=== PATIENT | male | born 1955 | race Caucasian/White ===

== ENCOUNTER → 2023-08-17 | Outpatient (REF) | payer MEDICARE, SELFPAY | LOC: DHSLP | PROVIDERS: ATTENDING PHYSICIAN Internal Medicine | DX: G47.33 Obstructive sleep apnea (adult) (pediatric) (principal) | CPT/HCPCS: 95800 ==

== ENCOUNTER 2024-03-28 21:57 | Inpatient (IN) | payer MEDICARE, SELFPAY ==
[2024-03-28 16:13] VITALS: BP 148/94
--- NOTE | 2024-03-28 19:48 | ED.GENMED ---
History of Present Illness
General
Chief Complaint: DVT/Possible Blood Clot
Source: patient
Exam Limitations: none
Time Seen by Provider: 03/28/24 18:37
History of Present Illness
History of Present Illness:
This is a 69 year old male that comes in with c/o bilateral leg DVT. States that he had DVT about 10-15 years ago and he was treated with Coumadin. States that he also had an IVC filter placed. States that he is no longer on any blood thinners.
States that his legs have been swollen since about Feb 23. State that he came in for ultrasound and was told that this was positive for DVT. States that he does get SOB going up the steps. Denies any fever, chills, chest pain, abd pain, nausea,
vomiting, diarrhea, headache, dizziness, urinary burning.
Past History
Past History
ED Past Medical History: HTN and Other (Kidney disease)
ED Past Surgical History: Other (Adrenal gland removed. IVC filter)
Social History
Tobacco: Non-smoker
Alcohol: Occasional
Personal:
Living: with family
Review of Systems
Review of Systems
All Other Systems: ROS reviewed and negative except as documented in HPI and ROS
Constitutional: Reports no symptoms; Denies fever or chills
EENT: Reports no symptoms
Respiratory: Reports trouble breathing; Denies cough
Cardiac: Reports no symptoms; Denies chest pain
ABD/GI: Reports no symptoms; Denies abdominal pain, nausea, vomiting or diarrhea
: Reports no symptoms; Denies dysuria, frequency or urgency
Musculoskeletal: Reports no symptoms
Skin: Reports other (Wound on the left lower leg)
Neurological: Reports no symptoms; Denies dizzy or headache
Psychiatric: Reports no symptoms
Phy Exam
General Physical Exam
General Presentation: no apparent distress
General age: appears stated age
General Skin: warm and dry
General Habitus: elderly and obese
General Mental: alert
General Hydration: appears well hydrated
ENT Exam
ENT Exam: TM's normal, pharynx normal and neck supple
Eye Exam
Eye Exam: EOMI
Cardiovascular Exam
Cardiovascular Exam: regular rate/rhythm and normal peripheral pulses
Pulmonary Exam
Pulmonary Exam: lungs clear, no respiratory distress, no rales, chest non tender, no crackles, no rhonchi, no wheezing and no cough
Gastrointestinal Exam
Gastrointestinal Exam: normal bowel sounds, non tender, soft, no organomegaly, no pulsatile mass, non distended and other (Obese)
Musculoskeletal Exam
Musculoskeletal Exam: full ROM and edema (Bilateral legs into the thighs. pitting edema +1 as skin is so tight. )
Skin Exam
Skin Exam: normal color, warm/dry, no petechia and redness (On the left lower leg with open wounds noted and draining. )
Psychiatric Exam
Psychiatric Exam: normal mood/affect
Course
Orders/Labs/Results
Orders:
Orders
03/28/24 19:56
Complete Blood Count/With Diff Urgent
Comprehensive Metabolic Panel Urgent
Lactic Acid Urgent
PTT Urgent
Prothrombin Time Urgent
03/28/24 19:58
Heparin 10,000 units IV NOW STA
Pharmacy Request to Place See Dose Instructions PO NOW STA
Discontinue all Active Warfarin orders?: Yes
Nursing to Place Non Medication Order As Directed
Physician Order: PTT 6 hours after initial start of Heparin infusion
03/28/24 19:59
Piperacillin/Tazo 3.375 Gram [Zosyn] 3.375 gram in 50 ml IV NOW
03/28/24 20:00
Heparin 83727 Units/250 ml 25,000 units in 250 ml IV PER PROTOCOL
Weight to be used for heparin protocol in kilograms (kg):: 133.81
Protocol:: DVT/PE
PTT Goal Range to be used:: PTT 73 to 111 seconds
Order type:: Initial
INITIAL Infusion Dose (UNITS/KG/hr) & then follow protocol:: 18 units/kg/hr
Infusion Dose in UNITS/hr & then follow protocol (UNITS/hr):: 2,000
INFUSION RATE in mL/hr & then follow protocol (mL/hr):: 20
For DVT/PE algorithm, re-bolus for low PTT?: Yes
PTT less than or equal to 64 seconds:: Re-bolus 80 units/kg (max 10,000units). Increase by 500 units/hr
(+ 5mL/hr)
PTT 64.1 to 72.9 seconds:: Re-bolus 40 units/kg (max 5,000 units). Increase by 300 units/hr
(+ 3mL/hr)
PTT 73 to 111 seconds:: Target Range. No change in rate.
PTT 111.1 to 130.9 seconds:: Decrease rate by 300 units/hr (- 3 mL/hr)
PTT 131 to 199.9 seconds:: HOLD for 1 hr. Then decrease by 400 units/hr (- 4mL/hr)
PTT greater than or equal to 200 seconds:: HOLD for 2 hrs & Notify Provider. Then decrease by 500 units/hr
(- 5mL/hr)
Lab follow-up:: Each change, PTT q6h until 2 consecutive are therapeutic. Then
PTT daily.
Pharmacy Request to Place See Dose Instructions IV DIRECTED
Abnormal Lab Results
03/28/24
19:56
RBC 4.52 L 10^6/uL
(4.70-6.10)
MCHC 32.4 L g/dL
(33.0-37.0)
RDW 16.1 H %
(11.5-14.5)
Abs Immat Gran (auto) 0.3 H 10^3/uL
(0-0.05)
Absolute Lymphs (auto) 0.9 L 10^3/uL
(1.2-3.4)
Immature Gran % 3.4 H %
(0-0.5)
Neutrophils % 76.5 H %
(42.2-75.2)
Lymphocytes % 12.1 L %
(20.5-51.1)
03/28/24 19:56
CBC normal. Dehydration. Chronic renal insufficiency, Hyperglycemia.
Vital Signs
Initial and Last Documented VS:
Initial Vital Signs
Temp Pulse Resp BP Pulse Ox
98.1 F 110 18 148/94 96
03/28/24 16:13 03/28/24 16:13 03/28/24 16:13 03/28/24 16:13 03/28/24 16:13
Last Documented Vital Signs
Temp Pulse Resp BP Pulse Ox
98.1 F 110 18 148/94 96
03/28/24 16:13 03/28/24 16:13 03/28/24 16:13 03/28/24 16:13 03/28/24 16:13
MDM/Problems Addressed
Differential Diagnosis Includes:
Extensive DVT bilateral legs
MDM/Problems Addressed:
This is a 69 year old male that comes in with c/o bilateral leg swelling and states that he has DVT in both legs. States that he has had leg swelling since Feb 23.
Will get labs, Explained to patient that his DVT are very extensive and it appears that he has some cellulitis on the left lower leg due to open wounds. Will admit patient and started on IV Heparin. Spoke with Dr. Rodríguez and he also agreed with
anticoagulation. Explained to patient that he will be admitted.
Chronic conditions affecting care: HTN and Cancer (Prostate)
Acute Exacerbation and/or Progression of Chronic Illness:
Prior history of DVT
*Radiology
Radiology exam reviewed: radiology read reviewed (US-Extensive bilateral occlusive and nonocclusive DVT. Right: The right common femoral, femoral and popliteal and posterior tibial veins show intraluminal echogenicity and noncompressibilty
consistent with thrombus formation. This occlusive in the mid and distal suprefical femoral vein and p), all reviewed NAD by ED Provider (US cont: and poplitteal vein. The peroneal vein is not visulized. Left: The left common femoral, femoral
popliteal and posterior tibial veins show intraluminal echogenicity and noncompressiblitly consistent with thrombus formation. This extends into the profundus vein as well. There is no flow in) and other (UC cont- The common femoral vein, posterior
tibial vein and profundus vein. The peroneal vein is not visualized. )
*Pulse Oximetry
Patient hypoxic: no
*EKG
Interpreted by ED Provider?: NA
Rate: EKG- N/A
*Gospel Worker Interpretation
Rate: Gospel Worker- N/A
*Critical Care Note
Total Time (30-74mins, 75-104mins- exclusive of procedures): Not Applicable
ED Attending Note
-
Portions of this chart may have been created with voice recognition software.� Occasional wrong word or��sound alike� substitutions may have occurred due to the inherent limitations of voice recognition software.
Discharge Plan
Departure
Patient Disposition: Admit
Date of Disposition: 03/28/24
Time of Disposition: 20:27
Presentation/result/management discussed w/ accepting MD/DO: Hospitalist
Patient with high blood pressure during this ER visit?: Yes
Condition: Good
Covid-19: Not Applicable
Discharge Problem:
Extensive DVT lower extremites, Cellulitis of left leg, Open wound of left lower extremity
Referrals:
UNKNOWN - PT DOES,NOT KNOW [Family Provider] -
Interventions
Interventions:
*General Assessment Last Done: 03/28/24 16:13
ED- Cardiac Assessment Last Done: 03/28/24 20:13
ED- Pulmonary Assessment Last Done: 03/28/24 20:13
ED-Skin Assessment Last Done: 03/28/24 20:12
Discharge Date and Time
Print Language: BULGARIAN
[2024-03-28 19:54] VITALS: BMI 43.6
[2024-03-28 20:17] LABS: % Basophils 0.5 % (0-2); % Eosinophils 0.9 % (0-6); % Immature Granulocytes 3.4 % (0-0.5); % Lymphocytes 12.1 % (20.5-51.1); % Monocytes 6.6 % (1.7-9.3); % Neutrophils 76.5 % (42.2-75.2); Absolute Eosinophils 0.1 10^3/uL (0-0.7); Absolute Immature Granulocytes 0.3 10^3/uL (0-0.05); Absolute Lymphocytes 0.9 10^3/uL (1.2-3.4); Absolute Monocytes 0.5 10^3/uL (0.1-0.6); Absolute Neutrophils 5.8 10^3/uL (1.4-6.5); Hematocrit 40.8 % (39.0-52.0); Hemoglobin 13.2 g/dL (13.0-18.0); Mean Corp Hgb Conc. 32.4 g/dL (33.0-37.0); Mean Corpuscular Hgb 29.2 pg (27.0-31.0); Mean Corpuscular Volume 90.3 fL (80.0-94.0); Nucleated Red Blood Cells % 0 % (-); Platelet Count 198 10^3/uL (130-400); Red Blood Cell Count 4.52 10^6/uL (4.70-6.10); Red Cell Dist. Width 16.1 % (11.5-14.5); White Blood Cell Count 7.6 10^3/uL (4.8-10.8)
[2024-03-28 20:26] LABS: Lactic Acid 1.4 mmol/L (0.7-2.0)
[2024-03-28 20:27] LABS: ALT (SGPT) 15 U/L (0-50); AST (SGOT) 20 U/L (17-59); Albumin 4.2 g/dl (3.5-5.0); Alkaline Phosphatase 86 U/L (38-126); Blood Urea Nitrogen 25 mg/dl (9-20); Calcium 9.3 mg/dl (8.4-10.2); Carbon Dioxide 23 mmol/L (22-30); Chloride 107 mmol/L (98-107); Estimated Creatinine Clearance 61 ml/min; Glucose 127 mg/dl (70-99); Potassium 4.2 mmol/L (3.5-5.1); Sodium 142 mmol/L (135-145); Total Bilirubin 0.7 mg/dl (0.2-1.3); eGFR 49.47
[2024-03-28 20:38] LABS: APTT 29.1 Sec (23.4-35.0)
[2024-03-28] MEDS: ZOSYN 50 IV (20:45)
[2024-03-28 21:02] LABS: INR 1.07; PT 14.2 Sec (11.4-14.6)
--- NOTE | 2024-03-28 21:06 | W.PN.UPDATE ---
Update Note
Progress Note Update
This note serves as an addendum to the H&P by dry color mixer BRANDEN Sanam ABRAHAM
HPI
69F HX HTN, remote HX HX DVT , IVC implant, HX adrenalactomy, CKD seen at ER;
- legs have been swollen since about Feb 23.
- POS OP Sono for extensive DVT
- DVT about 10-15 years ago treated with Coumadin and had an IVC filter placed
- no longer on any blood thinners.
ROS:
SOB going up the steps.
Denies any fever, chills, chest pain, abd pain, nausea, vomiting, diarrhea, headache, dizziness, urinary burning.
PHX; as above
Reviewed VS: afebrile , Tachycardia
PE
Gen: NAD, Morbidly obese
HEENT: anicteric
Neck: supple
Lungs: CTA
Cor: ST S1 S2 No murmur
Abdomen: obese
GLAZING DEPARTMENT SUPERVISOR: AAO3 , NFND
MS: Bilateral legs into the thighs: pitting edema +1 as skin is so tight.
Skin : LLEX; dusky red, warm and ruptured blisters oozing serosanguineous fluid
Psych: calm
Data
N WCC
Cr 1.5
eGFR 49
Wound Cx sent
B/L Radha US: Extensive bilateral occlusive and nonocclusive DVT as described above
- Rt Radha; occlusive in the mid and distal superficial femoral vein and popliteal vein.
- Lt Ex; common femoral, femoral, popliteal and posterior tibial vein with noncompressibility thrombus. No flow in the common femoral vein, posterior tibial vein and profundus vein
ASSESSMENT & PLAN
Recurrent extensive DVT in both Radha: Remote HX IVCF implant & DVT
Associated Lt Radha cellulins due to presumed infected venous stasis ruptured blister
Suspect Post DVT chronic venous insufficiency due to past IVCF and DVT
ST ? RV strain
- No prior Micro data in [facility]
- check MRSA screen
- empiric IV Cefazolin
- agree with Heparin gtt
- cannot have IV contrast CT due to CKD
- Hence ECHO to eval RH strain for now
- Pul consult for further eval for acute PE or what not !
HX FLORENTIN wear Noct CPAP
- to bring own CPAP
Suspect CKD3
- trend Cr
Obesity
- Affect all aspects of life
DVT Px ; on Heparin gtt
Full code
IP TLM
--- NOTE | 2024-03-28 21:12 | HPS.HSE ---
Family Physician
-
Family Physician: NOT KNOW UNKNOWN - PT DOES
Chief Complaint
-
Lower Extremity Edema with DVT
History of Present Illness
Patient is a 69 y/o male past medical history of HTN, Hyperlipidemia, CKD and prior DVT who presents with increased lower extremity edema. Patient reports increasing lower extremity edema of the past month. He notes the edema has worsened to the
point he developed some open weeping areas on his legs, particularly the left leg. He saw his PCP earlier today who sent him for a lower extremity ultrasound which revealed extensive bilateral DVTs. Patient has a prior history of DVT over 10 years
ago related to a prolonged hospitalization for which he was treated with Coumadin for 6 months and had an IVC filer placed. Patient has been working from home the past month, and noted increased sedentary lifestyle. Patient admits to increased
dyspnea on exertion over the past month as well. He also notes the increasing redness of the left lower extremity. He denies fevers, sweats or chills.
Medical History
Past Medical History
Past Medical History: Reports Other
Additional Past Medical History:
Essential Hypertension
Hyperlipidemia
CKD Stage IIIA
Generalized Anxiety Disorder
Prostate Cancer
Gout
Obstructive Sleep Apnea
Class III Obesity
Past Surgical History: Reports Other
Additional Past Surgical History:
Right Ankle ORIF
Left Adrenalectomy
Social History
Tobacco: Non-smoker
Alcohol: Other (Very rare alcohol use)
Family History
Family History: Not pertinent
Allergies / Home Medications
Allergies reflects when Allergies were last updated in [employer].
Home Medications with original date entered in [employer]
Allergy/Medication List:
Allergies
Allergy/AdvReac Type Severity Reaction Status Date / Time
No Known Allergies Allergy Unverified 03/28/24 16:13
Home Medications
amiloride 5 mg tablet 5 mg PO HS 03/28/24
amiloride 5 mg tablet 10 mg PO DAILY 03/28/24
citalopram 40 mg tablet 20 mg PO DAILY 03/28/24
febuxostat 40 mg tablet 40 mg PO DAILY 03/28/24
olmesartan 40 mg-amlodipine 10 mg-hydrochlorothiazide 25 mg tablet 1 tab PO HS 03/28/24
omega 1-cwv-fjw-fish oil 1,000 mg (120 mg-180 mg) capsule (Fish Oil) 1 cap PO BID 03/28/24
rosuvastatin 10 mg tablet 10 mg PO DAILY 03/28/24
Review of Systems
-
A 12 point ROS was completed and negative except as noted: Yes
Constitutional: Denies Fever or Chills
Respiratory: Reports Trouble Breathing; Denies Cough
Cardiac: Denies Chest Pain or Palpitations
Physical Exam
Vital Signs
Vital Signs
Temp Pulse Resp BP Pulse Ox
98.1 F 110 18 148/94 96
03/28/24 16:13 03/28/24 16:13 03/28/24 16:13 03/28/24 16:13 03/28/24 16:13
Physical Exam
General: Comfortable and Conversant
HEENT: Anicteric and Moist mucous membranes
Respiratory: Clear and Non Labored Respirations
Cardiac: S1/S2, Regular Rhythm and Tachycardia (Slightly)
GI: Soft and Non Tender
Rectal: Deferred by Provider
Musculoskeletal: No Clubbing, No Cyanosis and Other (+4 edema bilateral lower extremities)
Skin: Warm, Dry and Other (Moderate erythema left lower extremity from foot to just below knee with increased warmth to touch)
Neuro: Awake, Alert, Oriented and Nonfocal/grossly intact
Psych: Calm
Laboratory Results
-
03/28/24 19:56
03/28/24 19:56
Laboratory Results
PT 14.2 Sec (11.4-14.6) 03/28/24 19:56
INR 1.07 03/28/24 19:56
APTT 29.1 Sec (23.4-35.0) 03/28/24 19:56
Lactic Acid 1.4 mmol/L (0.7-2.0) 03/28/24 19:56
Total Bilirubin 0.7 mg/dl (0.2-1.3) 03/28/24 19:56
AST 20 U/L (17-59) 03/28/24 19:56
ALT 15 U/L (0-50) 03/28/24 19:56
Alkaline Phosphatase 86 U/L (38-126) 03/28/24 19:56
Data Reviewed
-
Lab Data: Labs Reviewed by me
Old Records: Reviewed
Impression/Plan
-
Bilateral Lower Extremity DVTs
-Continue heparin drip
-Concern raised from possible PE given tachycardia and reports dyspnea on exertion
-Consider VQ scan due to CKD
-Consult Pulmonary
Left Lower Extremity Cellulitis
-Continue Ancef
Essential Hypertension
-Continue amiloride, olmesartan, amlodipine and HCTZ
Hyperlipidemia
-Continue Crestor
CKD Stage IIIA
-Creatinine at baseline
Generalized Anxiety Disorder
-Continue citalopram
Obstructive Sleep Apnea
-Continue CPAP - Patient will bring from home
Class III Obesity due Excess Calories
-Affects all aspects of care
Code Status: Full Code
[2024-03-28] MEDS: HEPARIN 10000 UNITS IV (21:33)
[2024-03-28] MEDS: HEPARIN 25000 UNITS/250 ML IV (21:44)
[2024-03-28] MEDS: MIDAMOR PO (23:01)
[2024-03-28] MEDS: BENICAR PO (23:03)
[2024-03-28] MEDS: ORETIC PO (23:03)
[2024-03-28] MEDS: NORVASC PO (23:03)
[2024-03-28 23:08] VITALS: BP 154/81; BMI 43.3
[2024-03-28] MEDS: ANCEF 10 IV (23:37)
[2024-03-29 03:24] VITALS: BP 131/80
[2024-03-29 04:34] LABS: APTT 85.2 Sec (23.4-35.0)
[2024-03-29 06:00] VITALS: BMI 43.3
--- NOTE | 2024-03-29 07:17 | W.PN.HOSP.TC ---
Today's Communication/Plan
-
Echo
Compression, Elevation
Continue Heparin Drip
Await pulm eval
Assessment / Plan
Assessment / Plan
Physical Exam
General: Comfortable and Conversant
HEENT: Anicteric and Moist mucous membranes
Respiratory: Clear and Non Labored Respirations
Cardiac: S1/S2, Regular Rhythm and Regular Rate
GI: Soft and Non Tender. Positive bowel sounds.
Musculoskeletal: No Cyanosis and Other (+4 edema bilateral lower extremities)
Skin: Warm, Dry and Other (Moderate erythema left lower extremity from foot to just below knee with increased warmth to touch with wounds with a little serous drainage)
Neuro: Awake, Alert, Oriented and Nonfocal/grossly intact
Psych: Calm
Assessment/Plan
Bilateral Lower Extremity DVTs with wounds
Recurrent lower extremity dvt
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
Bilateral Lower Extremity Edema
-Continue heparin drip
-Concern raised from possible PE given tachycardia and reports dyspnea on exertion
-Consider VQ scan due to CKD
-Pulmonary was consulted at the time of admission, appreciate their evaluation and recommendations
-Vascular also consulted at the time of admission --> they mentioned that it is unclear there is benefit to lytic treatment and intervention
-Compression: wrap bilateral legs with phong wraps starting at toes and wrap to high thigh
-Elevation of lower extremities as much as possible
-Will need outpatient hematology follow-up
-Follow-up on echo
Left Lower Extremity Cellulitis
-Continue Ancef
Essential Hypertension
-Continue amiloride, olmesartan, amlodipine and HCTZ
Hyperlipidemia
-Continue Crestor
CKD Stage IIIA
-Creatinine at baseline
Generalized Anxiety Disorder
-Continue citalopram
Obstructive Sleep Apnea
-Continue CPAP - Patient will bring from home
History of Adrenalectomy?
Class III Obesity due Excess Calories
-Affects all aspects of care
DVT Prophylaxis: Heparin Drip
Code Status: Full Code
Anticipated Discharge: > 48 hours
Subjective/Interval History
-
Date of Service: March 29, 2024
Patient was seen and examined. He denied any pain in his legs, chest pain or shortness of breath.
Objective Data
-
Labs:
Laboratory Results
03/28/24 03/29/24 03/29/24
19:56 04:01 06:00
WBC 7.6 Pending
Hgb 13.2 Pending
Hct 40.8 Pending
Plt Count 198 Pending
PT 14.2
INR 1.07
APTT 29.1 85.2 H
Sodium 142 Pending
Potassium 4.2 Pending
Chloride 107 Pending
Carbon Dioxide 23 Pending
BUN 25 H Pending
Creatinine 1.5 H Pending
Glucose 127 H Pending
Calcium 9.3 Pending
Total Bilirubin 0.7
AST 20
ALT 15
Alkaline Phosphatase 86
03/29/24
10:40
WBC
Hgb
Hct
Plt Count
PT
INR
APTT Pending
Sodium
Potassium
Chloride
Carbon Dioxide
BUN
Creatinine
Glucose
Calcium
Total Bilirubin
AST
ALT
Alkaline Phosphatase
Vital Signs:
Vital Signs
Temp Pulse Resp BP Pulse Ox
98.1 F 71 19 131/80 96
03/29/24 03:24 03/29/24 03:24 03/29/24 03:24 03/29/24 03:24 03/29/24 03:24
I&O
03/28/24 03/29/24 03/30/24
06:59 06:59 06:59
Output Total 325 / 325
Balance -325 / -325
[2024-03-29 07:30] VITALS: BP 145/85
[2024-03-29] MEDS: MIDAMOR 10 MG PO (08:46)
[2024-03-29] MEDS: CELEXA 20 MG PO (08:46)
[2024-03-29] MEDS: CRESTOR 10 MG PO (08:46)
[2024-03-29] MEDS: ANCEF 10 IV ×2 (08:46→17:46)
[2024-03-29] MEDS: ULORIC 40 MG PO (08:48)
--- NOTE | 2024-03-29 09:41 | W.PN.VS ---
Today's Communication / Plan
-
- recurrent lower extremity dvt
- symptoms been present for a month
- given time fram, recurrence and bilateral nature, unlcear there is benefit to lytic treatment and intervention. Discussed with patient
- best option is compression and anticoagulation
- hep gtt - heme to manage anticoagulation fci (likely need lifelong anticoagulation)
- wrap bilateral legs with phong wraps starting at toes and wrap to high thigh
- elevate legs as much as possible to help with edema
- discussed with patient manager long term care and chronic nature of issuue
Assessment/Plan
-
bilateral lower extremity dvt with wounds
- recurrent lower extremity dvt
- symptoms been present for a month
- given time fram, recurrence and bilateral nature, unlcear there is benefit to lytic treatment and intervention. Discussed with patient
- best option is compression and anticoagulation
- hep gtt - heme to manage anticoagulation fci (likely need lifelong anticoagulation)
- wrap bilateral legs with phong wraps starting at toes and wrap to high thigh
- elevate legs as much as possible to help with edema
- discussed with patient fci and chronic nature of issuue
Subjective Data
-
Date of Service: March 29, 2024
patient presents with bilateral dvt
history of DVT and ivc filter 10 years ago
not on anticoagulation
progressive swelling of lower extremities over the last month
pain and blisters have been present for weeks
Objective Data
-
Vital Signs
Temp Pulse Resp BP Pulse Ox
98.6 F 73 18 145/85 95
03/29/24 07:30 03/29/24 08:46 03/29/24 07:30 03/29/24 08:46 03/29/24 07:30
Intake and Output
03/28/24 03/29/24 03/30/24
06:59 06:59 06:59
Intake Total 180 / 180
Output Total 325 / 325
Balance -325 / -325 180 / 180
Intake:
Oral fluids 180 / 180
Output:
Urine, Voided 325 / 325
Calcium 9.3 mg/dl (8.4-10.2) 03/28/24 19:56
Total Bilirubin 0.7 mg/dl (0.2-1.3) 03/28/24 19:56
AST 20 U/L (17-59) 03/28/24 19:56
ALT 15 U/L (0-50) 03/28/24 19:56
Alkaline Phosphatase 86 U/L (38-126) 03/28/24 19:56
Total Protein 7.0 g/dl (6.3-8.2) 03/28/24 19:56
Albumin 4.2 g/dl (3.5-5.0) 03/28/24 19:56
Physical Exam
-
rrr
ctab
nt,nd,soft
3-4+ edema bilat
blisters on leg left worse than right
no signs of ischemia
[2024-03-29 11:27] LABS: Hematocrit 37.5 % (39.0-52.0); Hemoglobin 12.2 g/dL (13.0-18.0); Mean Corp Hgb Conc. 32.5 g/dL (33.0-37.0); Mean Corpuscular Hgb 29.2 pg (27.0-31.0); Mean Corpuscular Volume 89.7 fL (80.0-94.0); Mean Platelet Volume 9.1 fL (7.4-10.4); Platelet Count 186 10^3/uL (130-400); Red Blood Cell Count 4.18 10^6/uL (4.70-6.10); Red Cell Dist. Width 16.1 % (11.5-14.5); White Blood Cell Count 7.1 10^3/uL (4.8-10.8)
[2024-03-29 11:42] LABS: Blood Urea Nitrogen 27 mg/dl (9-20); Calcium 9.2 mg/dl (8.4-10.2); Carbon Dioxide 25 mmol/L (22-30); Chloride 106 mmol/L (98-107); Estimated Creatinine Clearance 65 ml/min; Glucose 115 mg/dl (70-99); Sodium 139 mmol/L (135-145); eGFR 53.74
[2024-03-29 11:55] VITALS: BP 150/82
[2024-03-29] MEDS: HEPARIN 25000 UNITS/250 ML IV (12:04)
[2024-03-29 12:14] LABS: Glycohemoglobin (HgbA1c) 5.5 % (4.0-5.6)
[2024-03-29 15:29] VITALS: BP 144/80
--- NOTE | 2024-03-29 17:44 | CON.PUL ---
Consultation
Consultation Request
Date/Time Consultation Requested: 03/29/2024
Date/Time Consultation Performed: 03/29/2024
Requesting Provider: Dr. Gonzalez
Performing Provider: Dr. Meliton Brown
Reason for Consultation: Recurrent DVT
Medical History
-
History of Present Illness:
69-year-old man with past medical history significant for hypertension, hyperlipidemia, chronic kidney disease, prior DVT who presents with increased lower extremity edema. Patient reports increasing lower extremity edema for the past month. Lower
extremity edema significant enough that now he has weeping ulcers. Primary doctor sent him for ultrasound of the legs which revealed extensive bilateral DVT.
Patient has history of DVT 10 years ago related to prolonged hospitalization. Treated 6 months with Coumadin IVC filter was placed.
Reports increased sedentary lifestyle working from home the last several months.
Reports some increased exertional dyspnea for the last month as well.
Past Medical History
Past Medical History: Other (See assessment and plan)
Social History
Tobacco: Non-smoker
Alcohol: Other (Rare)
Drug: None
Family History
Family History: Reviewed & Not Pertinent
Allergies / Home Medications
Allergies
Allergy/AdvReac Type Severity Reaction Status Date / Time
No Known Allergies Allergy Unverified 03/28/24 16:13
Home Medications
�Medication �Instructions �Recorded �Confirmed �Last Taken �Type
amiloride 5 mg tablet 5 mg PO HS Blood Pressure 03/28/24 03/28/24 Unknown History
amiloride 5 mg tablet 10 mg PO DAILY Blood Pressure 03/28/24 03/28/24 Unknown History
citalopram 40 mg tablet 20 mg PO DAILY Mental 03/28/24 03/28/24 Unknown History
Health/Anxiety
febuxostat 40 mg tablet 40 mg PO DAILY High Cholesterol 03/28/24 03/28/24 Unknown History
olmesartan 40 mg-amlodipine 10 1 tab PO HS Blood Pressure 03/28/24 03/28/24 Unknown History
mg-hydrochlorothiazide 25 mg tablet
omega 2-mjs-kek-fish oil 1,000 mg 1 cap PO BID Supplement 03/28/24 03/28/24 Unknown History
(120 mg-180 mg) capsule (Fish Oil)
rosuvastatin 10 mg tablet 10 mg PO DAILY High Cholesterol 03/28/24 03/28/24 Unknown History
Review of Systems
Vitals / Labs / Diagnostic Testing
Vital Signs
Temp Pulse Resp BP Pulse Ox
98.7 F 72 18 144/80 98
03/29/24 15:29 03/29/24 15:29 03/29/24 15:29 03/29/24 15:29 03/29/24 15:29
Lab Data
03/29/24 11:17
03/29/24 11:17
Laboratory Results
03/28/24 03/29/24 03/29/24
19:56 04:01 11:17
PT 14.2
INR 1.07
APTT 29.1 85.2 H 74.0 H
Microbiology
03/28/24 20:41 Leg - Left Gram Stain - Preliminary
03/28/24 20:41 Heel - Right Gram Stain - Preliminary
Diagnostic Testing:
Physical Exam
-
HEENT: Normocephalic
Cardiovascular: S1/S2
Respiratory: Non-Labored Respirations
GI: Soft
Neurology: Awake
Skin: Other (Significant lower extremity edema with venous stasis.)
General: Comfortable
Assessment
-
69-year-old man who came with progressive lower extremity swelling for about a month. Found to have extensive bilateral DVT. Has history of DVT in the setting of hospitalization 10 years ago completed 6 months of anticoagulation, IVC filter was
placed at that time. We were consulted for evaluation
Bilateral lower extremity DVT
Lower extremity Dopplers 03/28/2024: Extensive bilateral occlusive and nonocclusive DVT.
Exertional dyspnea: Cannot rule out thromboembolic disease.
Left lower extremity cellulitis
Condition present prior admission:
Hypertension
Hyperlipidemia
Prior DVT 10 years ago-completed 6 months of anticoagulation. In the setting of hospitalization
Chronic kidney disease stage III
Anxiety
Prostate cancer
Gout
Obstructive sleep apnea
Class III obesity
Right ankle ORIF
Left adrenalectomy
Assessment and plan:
Extensive bilateral DVT, currently on a heparin drip.
Vascular correspondence reviewed continue with anticoagulation, local care and compression stockings.
Follow PTT
From my perspective okay to transition to oral anticoagulation tomorrow if patient remains stable.
Do not think CT angiogram or VQ scan will pack changer at this point as the patient likely will need lifelong anticoagulation.
-
proBNP normal
EKG without evidence for RV strain
No oxygen requirements
Not hypotensive or tachycardic
Will obtain echocardiogram, if RV is normal then no further evaluation necessary. Pending
Obtain chest x-ray
-
Chronic exertional shortness of breath may be explained by 90 to 100 pound weight gain and lower extremity swelling
Will continue to follow.
[2024-03-29 19:37] VITALS: BP 136/76
[2024-03-29] MEDS: MIDAMOR 5 MG PO (21:43)
[2024-03-29] MEDS: BENICAR 40 MG PO (21:43)
[2024-03-29] MEDS: NORVASC 10 MG PO (21:43)
[2024-03-29] MEDS: ORETIC 25 MG PO (21:43)
[2024-03-29 23:27] VITALS: BP 140/82
[2024-03-30] MEDS: ANCEF 10 IV ×3 (00:21→15:29)
[2024-03-30] MEDS: HEPARIN 25000 UNITS/250 ML IV (00:21)
[2024-03-30 03:36] VITALS: BP 138/74
[2024-03-30 06:00] VITALS: BMI 43.3
[2024-03-30 06:44] LABS: % Basophils 0.7 % (0-2); % Eosinophils 3.8 % (0-6); % Immature Granulocytes 3.6 % (0-0.5); % Lymphocytes 16.5 % (20.5-51.1); % Monocytes 8.4 % (1.7-9.3); Absolute Basophils 0.1 10^3/uL (0-0.2); Absolute Eosinophils 0.3 10^3/uL (0-0.7); Absolute Immature Granulocytes 0.3 10^3/uL (0-0.05); Absolute Lymphocytes 1.2 10^3/uL (1.2-3.4); Absolute Monocytes 0.6 10^3/uL (0.1-0.6); Absolute Neutrophils 4.8 10^3/uL (1.4-6.5); Hematocrit 39.2 % (39.0-52.0); Hemoglobin 12.6 g/dL (13.0-18.0); Mean Corp Hgb Conc. 32.1 g/dL (33.0-37.0); Mean Corpuscular Hgb 29.1 pg (27.0-31.0); Mean Corpuscular Volume 90.5 fL (80.0-94.0); Mean Platelet Volume 8.9 fL (7.4-10.4); Nucleated Red Blood Cells % 0 % (-); Platelet Count 180 10^3/uL (130-400); Red Blood Cell Count 4.33 10^6/uL (4.70-6.10); Red Cell Dist. Width 15.9 % (11.5-14.5); White Blood Cell Count 7.1 10^3/uL (4.8-10.8)
[2024-03-30 07:05] LABS: Blood Urea Nitrogen 25 mg/dl (9-20); Carbon Dioxide 23 mmol/L (22-30); Chloride 107 mmol/L (98-107); Estimated Creatinine Clearance 70 ml/min; Glucose 104 mg/dl (70-99); Potassium 3.9 mmol/L (3.5-5.1); Sodium 141 mmol/L (135-145); eGFR 58.73
[2024-03-30 07:08] LABS: APTT 101.5 Sec (23.4-35.0)
[2024-03-30 07:35] VITALS: BP 155/82
--- NOTE | 2024-03-30 07:37 | W.PN.VS ---
Today's Communication / Plan
-
wrap legs from toes to thigh (including feet)
Assessment/Plan
-
bilateral lower extremity dvt with wounds
- recurrent lower extremity dvt
- symptoms been present for a month
- given time frame, recurrence and bilateral nature, unclear there is benefit to lytic treatment and intervention. Discussed with patient
- best option is compression and anticoagulation
-
- cont phong wraps to legs but wrap from toes to mid thigh
- ok from vascular standpoint to transition to oral anticoagulation
- can follow up as outpatient
Subjective Data
-
Date of Service: March 30, 2024
stable this am
no complaints
edema slightly improved
Objective Data
-
Vital Signs
Temp Pulse Resp BP Pulse Ox
98.9 F 70 20 138/74 97
03/30/24 03:36 03/30/24 03:36 03/30/24 03:36 03/30/24 03:36 03/30/24 03:36
Intake and Output
03/29/24 03/30/24 03/31/24
06:59 06:59 06:59
Intake Total 1020 / 1020
Output Total 325 / 325 1855 / 1855
Balance -325 / -325 -835 / -835
Intake:
Oral fluids 780 / 780
IV piggybacks 240 / 240
Output:
Urine, Voided 325 / 325 1855 / 1855
Lab Results
03/30/24 06:30
03/30/24 06:30
Calcium 9.0 mg/dl (8.4-10.2) 03/30/24 06:30
Total Bilirubin 0.7 mg/dl (0.2-1.3) 03/28/24 19:56
AST 20 U/L (17-59) 03/28/24 19:56
ALT 15 U/L (0-50) 03/28/24 19:56
Alkaline Phosphatase 86 U/L (38-126) 03/28/24 19:56
Total Protein 7.0 g/dl (6.3-8.2) 03/28/24 19:56
Albumin 4.2 g/dl (3.5-5.0) 03/28/24 19:56
Physical Exam
-
legs still edematous
wraps in place but not on feet
[2024-03-30] MEDS: CELEXA 20 MG PO (08:27)
[2024-03-30] MEDS: MIDAMOR 10 MG PO (08:27)
[2024-03-30] MEDS: CRESTOR 10 MG PO (08:27)
[2024-03-30] MEDS: FLUSH (NSS) 2 FLUSH IV (08:28)
[2024-03-30] MEDS: ELIQUIS 10 MG PO (10:03)
--- NOTE | 2024-03-30 10:07 | PTCARENOTE ---
Heparin drip discontinued at 1005, Eliquis provided per orders.
[2024-03-30] MEDS: ULORIC 40 MG PO (10:57)
[2024-03-30 11:21] VITALS: BP 135/83
--- NOTE | 2024-03-30 13:00 | PTCARENOTE ---
Pt ambulated in hallway with RW and just standby from staff. Pt with but not new dyspnea. Pt's HR up to 140 with exertion, back down to 90s-low 100s at rest, denying any chest discomfort or dizziness. Made Dr. Cid aware of tachycardia, no
change in orders.
--- NOTE | 2024-03-30 13:44 | W.PN.HOSP.TC ---
Today's Communication/Plan
-
Discharge today
Assessment / Plan
Assessment / Plan
Physical Exam
General: Not in acute distress
HEENT: Normocephalic. Moist mucous membranes
Respiratory: Clear to Auscultation Bilaterally.
Cardiac: S1/S2, Regular Rhythm and Regular Rate
GI: Soft and Non Tender. Positive bowel sounds.
Musculoskeletal: No Cyanosis and Other (+4 edema bilateral lower extremities)
Skin: Warm, Dry and Other (Moderate erythema left lower extremity from foot to just below knee with increased warmth to touch with wounds with a little serous drainage)
Neuro: Awake, Alert, Oriented and Nonfocal/grossly intact
Psych: Calm
Assessment/Plan
Bilateral Lower Extremity DVTs with wounds
Recurrent lower extremity dvt
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
Bilateral Lower Extremity Edema
-Switched Heparin Drip to Eliquis 10 mg BID for 7 days, followed by 5 mg BID
-Concern raised from possible PE given tachycardia and reports dyspnea on exertion
-Pulmonary was consulted at the time of admission, appreciate their evaluation and recommendations
-Vascular also consulted at the time of admission --> they mentioned that it is unclear there is benefit to lytic treatment and intervention
-Compression: wrap bilateral legs with phong wraps but wrap from toes to mid thigh
-Elevation of lower extremities as much as possible
-Will need outpatient hematology follow-up
-Follow-up on echo
Chronic exertional shortness of breath
-Can be explained by lower extremity swelling and significant weight gain
Left Lower Extremity Cellulitis
-Transition to Cephalexin 250 mg QID on discharge for 5 days
Essential Hypertension
-Continue amiloride, olmesartan, amlodipine and HCTZ
Hyperlipidemia
-Continue Crestor
CKD Stage IIIA
-Creatinine at baseline
Generalized Anxiety Disorder
-Continue citalopram
Obstructive Sleep Apnea
-Continue CPAP - Patient will bring from home
History of Adrenalectomy?
Class III Obesity due Excess Calories
-Affects all aspects of care
DVT Prophylaxis: Eliquis
Code Status: Full Code
More than 30 minutes spent in discharge including
Final examination of the patient
Summarizing hospital stay
Instructions for continuing care to all relevant caregivers
Preparation of discharge records, prescriptions, and referral forms
Total time spent (in minutes): 40
Anticipated Discharge: Today
Subjective/Interval History
-
Date of Service: March 30, 2024
Patient was seen and examined. He denied any chest pain, shortness of breath, leg pain or any other complaints. He requested to be discharged today and is very worried about the snowstorm expected within the next day.
Objective Data
-
Labs:
Laboratory Results
03/30/24
06:30
WBC 7.1
Hgb 12.6 L
Hct 39.2
Plt Count 180
APTT 101.5 H
Sodium 141
Potassium 3.9
Chloride 107
Carbon Dioxide 23
BUN 25 H
Creatinine 1.3
Glucose 104 H
Calcium 9.0
Vital Signs:
Vital Signs
Temp Pulse Resp BP Pulse Ox
98.1 F 81 18 135/83 93
03/30/24 11:21 03/30/24 11:21 03/30/24 11:21 03/30/24 11:21 03/30/24 11:21
I&O
03/29/24 03/30/24 03/31/24
06:59 06:59 06:59
Intake Total 1020 / 1020
Output Total 325 / 325 1855 / 1855
Balance -325 / -325 -835 / -835
--- NOTE | 2024-03-30 14:37 | W.DCSUMMARY ---
Discharge Summary
Discharge Data
Date of Admission: 03/28/24
Date of Discharge: 03/30/24
Total time spent discharging patient (in min): 40
-
Pending Results: No
Hospital Course
69 y/o male with past medical history of hypertension, hyperlipidemia, chronic kidney disease and prior DVT who presented with increased lower extremity edema. Patient was found to have bilateral lower extremity DVTs. At the time of admission,
pulmonary (due to patient's renal insufficiency and concern for PE) and vascular surgery were consulted. Patient was started on antibiotics for possible lower extremity cellulitis. Vascular surgery mentioned that it was unclear whether there was
benefit to lytic treatment and intervention, recommendation was for compression and elevation of lower extremities as much as possible. It was determined that CT angiogram or VQ scan would not changeover operator at the time, as the patient would
likely will need lifelong anticoagulation. Patient denied any chest pain or shortness of breath, he was not hypoxic, he denied any pain in his legs, and was ambulating without difficulty and was stable for discharge.
Discharge Plan
-
Patient Disposition: Home (Routine Discharge)
Discharge Diagnosis/Procedures: Bilateral Lower Extremity DVT with wounds
Recurrent lower extremity DVT
History of IVC
Bilateral Lower Extremity Edema
Chronic exertional shortness of breath
Left Lower Extremity Cellulitis
Essential Hypertension
Hyperlipidemia
Chronic Kidney Disease Stage IIIA
Generalized Anxiety Disorder
Obstructive Sleep Apnea
History of Adrenalectomy?
Class III Obesity due Excess Calories
Condition: Good
Diet: Low Fat, Low Cholesterol and Low Sodium
Activity: As tolerated
Activity Restrictions/Additional Instructions:
You should take Eliquis 10 mg, twice a day, through the evening of April 05, 2024.
You should start taking Eliquis 5 mg, twice a day, starting on April 06, 2024. Follow-up with hematology outpatient for additional refills.
Compression: wrap bilateral legs with phong wraps but wrap from toes to mid thigh.
Elevated of lower extremities as much as possible.
Follow-up with your PCP in 2 to 3 days in their office to look at your leg and adjust your antibiotics if needed. Follow-up on microbiology/culture results from the hospitalization to see whether your antibiotics need to be changed. Discuss this
with your PCP in 2 to 3 days.
Referrals:
Carrie Sharpe MD [Active] - in two to three weeks (Bilateral lower extremity DVTs. Recurrent DVT. Started on Eliquis. Needs hematology follow-up.)
UNKNOWN - PT DOES,NOT KNOW [Family Provider] -
Additional Discharge Medication Instructions: Cephalexin and Eliquis are new medications.
Prescriptions:
New
cephalexin 250 mg tablet
250 mg PO Q6H 5 Days Qty: 20 0RF
Eliquis 5 mg Tablet
10 mg PO BID Qty: 26 0RF
Rx Instructions:
Last dose should be on the evening of April 05, 2024
Eliquis 5 mg tablet
5 mg PO BID Qty: 60 2RF
Rx Instructions:
First dose on April 06, 2024 morning
Continued
citalopram 40 mg Tablet
20 mg PO DAILY
rosuvastatin 10 mg Tablet
10 mg PO DAILY
febuxostat 40 mg Tablet
40 mg PO DAILY
omega 9-qzl-xqq-fish oil [Fish Oil] 1,000 (120-180) mg Capsule
1 cap PO BID
xlgncfvxzi-oxjfuvjtt-iyuvchriz 40-10-25 mg Tablet
1 tab PO HS
amiloride 5 mg Tablet
10 mg PO DAILY
amiloride 5 mg Tablet
5 mg PO HS
Discharge Orders:
Discharge Patient (As Directed); Ordered 03/30/24
Ordered By: Francisco Walter
Discharge Date and Time
Discharge Date/Time: 03/30/24 17:12
Print Language: SPANISH
[2024-03-30 15:35] VITALS: BP 149/82
== END 2024-03-30 17:12 | disposition home or self-care (01) | DRG 300 ==
LOC: 4 EAST ACU 21:57
PROVIDERS: Clinical Nurse Specialist Family Health; Physician Assistant Medical; ADMITTING PHYSICIAN Internal Medicine; ATTENDING PHYSICIAN Hospitalist; CONSULT PHYSICIAN Internal Medicine Critical Care Medicine; CONSULT PHYSICIAN Surgery; EMERGENCY PHYSICIAN Emergency Medicine
DX: I82.403 Acute embolism and thrombosis of unspecified deep veins of lower extremity, bilateral (principal); L03.116 Cellulitis of left lower limb; N18.31 Chronic kidney disease, stage 3a; I12.9 Hypertensive chronic kidney disease with stage 1 through stage 4 chronic kidney disease, or unspecified chronic kidney disease; E78.5 Hyperlipidemia, unspecified; F41.1 Generalized anxiety disorder; G47.33 Obstructive sleep apnea (adult) (pediatric); E66.813 Obesity, class 3; S81.802A Unspecified open wound, left lower leg, initial encounter; X58.XXXA Exposure to other specified factors, initial encounter; I87.2 Venous insufficiency (chronic) (peripheral); M10.9 Gout, unspecified; Z86.718 Personal history of other venous thrombosis and embolism
CPT/HCPCS: 36415; 71045; 80048; 80053; 81003; 83036; 83605; 83880; 84443; 85025; 85027; 85610; 85730; 87070; 87071; 87077; 87147; 87186; 87205; 93970; 96365; 96367; 99284

== ENCOUNTER → 2024-04-01 12:27 | Outpatient (REF) | payer MEDICARE, SELFPAY | LOC: WOUND 12:27 | PROVIDERS: ATTENDING PHYSICIAN Surgery | DX: L97.221 Non-pressure chronic ulcer of left calf limited to breakdown of skin (principal); L97.311 Non-pressure chronic ulcer of right ankle limited to breakdown of skin; I82.503 Chronic embolism and thrombosis of unspecified deep veins of lower extremity, bilateral; Z79.01 Long term (current) use of anticoagulants | CPT/HCPCS: 11042; 97597; 97598; 99204 ==

== ENCOUNTER → 2024-04-01 14:11 | Outpatient (REF) | payer MEDICARE, SELFPAY | LOC: RCS 14:11 | PROVIDERS: ATTENDING PHYSICIAN Internal Medicine | DX: I82.409 Acute embolism and thrombosis of unspecified deep veins of unspecified lower extremity (principal); R06.09 Other forms of dyspnea | CPT/HCPCS: 93306 ==

== ENCOUNTER → 2024-04-08 12:57 | Outpatient (REF) | payer MEDICARE, SELFPAY | LOC: WOUND 12:57 | PROVIDERS: ATTENDING PHYSICIAN Surgery; FAMILY PHYSICIAN Surgery | DX: L97.221 Non-pressure chronic ulcer of left calf limited to breakdown of skin (principal); L97.311 Non-pressure chronic ulcer of right ankle limited to breakdown of skin; L97.511 Non-pressure chronic ulcer of other part of right foot limited to breakdown of skin; I82.503 Chronic embolism and thrombosis of unspecified deep veins of lower extremity, bilateral; Z79.01 Long term (current) use of anticoagulants | CPT/HCPCS: 97597; 97598 ==

== ENCOUNTER → 2024-04-17 13:48 | Outpatient (REF) | payer MEDICARE, SELFPAY | LOC: WOUND 13:48 | PROVIDERS: ATTENDING PHYSICIAN Surgery | DX: L97.221 Non-pressure chronic ulcer of left calf limited to breakdown of skin (principal); L97.311 Non-pressure chronic ulcer of right ankle limited to breakdown of skin; L97.511 Non-pressure chronic ulcer of other part of right foot limited to breakdown of skin; I82.503 Chronic embolism and thrombosis of unspecified deep veins of lower extremity, bilateral | CPT/HCPCS: 99213 ==

== ENCOUNTER → 2024-04-22 10:42 | Outpatient (REF) | payer MEDICARE, SELFPAY | LOC: WOUND 10:42 | PROVIDERS: ATTENDING PHYSICIAN Surgery | DX: L97.221 Non-pressure chronic ulcer of left calf limited to breakdown of skin (principal); L97.311 Non-pressure chronic ulcer of right ankle limited to breakdown of skin; L97.511 Non-pressure chronic ulcer of other part of right foot limited to breakdown of skin; I82.503 Chronic embolism and thrombosis of unspecified deep veins of lower extremity, bilateral; Z79.01 Long term (current) use of anticoagulants | CPT/HCPCS: 99213 ==

== ENCOUNTER → 2024-04-29 13:50 | Outpatient (REF) | payer MEDICARE, SELFPAY | LOC: WOUND 13:50 | PROVIDERS: ATTENDING PHYSICIAN Surgery; FAMILY PHYSICIAN Surgery | DX: L97.221 Non-pressure chronic ulcer of left calf limited to breakdown of skin (principal); L97.311 Non-pressure chronic ulcer of right ankle limited to breakdown of skin; L97.511 Non-pressure chronic ulcer of other part of right foot limited to breakdown of skin; I82.503 Chronic embolism and thrombosis of unspecified deep veins of lower extremity, bilateral; Z79.01 Long term (current) use of anticoagulants | CPT/HCPCS: 99213 ==

== ENCOUNTER → 2024-05-09 10:21 | Outpatient (REF) | payer MEDICARE, SELFPAY | LOC: WOUND 10:21 | PROVIDERS: ATTENDING PHYSICIAN Surgery | DX: L97.221 Non-pressure chronic ulcer of left calf limited to breakdown of skin (principal); L97.311 Non-pressure chronic ulcer of right ankle limited to breakdown of skin; L97.511 Non-pressure chronic ulcer of other part of right foot limited to breakdown of skin; I82.503 Chronic embolism and thrombosis of unspecified deep veins of lower extremity, bilateral | CPT/HCPCS: 99212 ==

== ENCOUNTER → 2024-07-01 13:50 | Outpatient (REF) | payer MEDICARE, SELFPAY | LOC: RAD 13:50 | PROVIDERS: ATTENDING PHYSICIAN Internal Medicine; FAMILY PHYSICIAN Internal Medicine | DX: I82.401 Acute embolism and thrombosis of unspecified deep veins of right lower extremity (principal); I87.2 Venous insufficiency (chronic) (peripheral) | CPT/HCPCS: 93970 ==

== ENCOUNTER → 2024-10-10 16:00 | Outpatient (REF) | payer MEDICARE, SELFPAY | LOC: RAD 16:00 | PROVIDERS: ATTENDING PHYSICIAN Internal Medicine; FAMILY PHYSICIAN Internal Medicine | DX: R22.43 Localized swelling, mass and lump, lower limb, bilateral (principal) | CPT/HCPCS: 93970 ==